=== PATIENT | male | born 1985 | race African-American/Black ===

== ENCOUNTER 2017-06-10 18:56 | Emergency (ER) | payer SELFPAY ==
--- NOTE | 2017-06-10 19:04 | PDOC ---
Rapid Medical Evaluation Time Seen by Provider: 06/10/17 19:02 Medical Evaluation: Allergies Allergy/AdvReac Type Severity Reaction Status Date / Time No Known Allergies Allergy Verified 11/29/13 13:50 06/10/17 19:02 I have performed a brief in-person evaluation of this patient. The patient presents with a chief complaint of: abscess to face since yesterday , "feels like i have a fever now" Pertinent physical exam findings: mild raised lesion inferior to left eye, no erythema, swelling, fluctuance, induration I have ordered the following: nothing The patient will proceed to the ED for further evaluation. Discharge Disposition - Diagnosis Skin abnormality - Referrals - Patient Instructions - Post Discharge Activity
[2017-06-10 19:08] VITALS: BP 140/84; PULSE 95; TEMP 99.2; BMI 38.0
--- NOTE | 2017-06-10 19:56 | PDOC ---
History of Present Illness - General Chief Complaint: Wound Stated Complaint: PAIN Time Seen by Provider: 06/10/17 19:02 History Source: Patient - History of Present Illness Timing/Duration: other Severity: severe Associated Symptoms: denies: fever/chills Past History - Past Medical History Allergies/Adverse Reactions: Allergies Allergy/AdvReac Type Severity Reaction Status Date / Time No Known Allergies Allergy Verified 06/10/17 19:04 Home Medications: Ambulatory Orders Clindamycin [Cleocin -] 300 mg PO Q6HPO #28 capsule 06/10/17 Ibuprofen [Motrin -] 2 tab PO Q6H #30 tablet 06/10/17 COPD: No DVT: No - Suicide/Smoking/Psychosocial Hx Smoking History: Never smoked Have you smoked in the past 12 months: No Information on smoking cessation initiated: No Hx Alcohol Use: No Drug/Substance Use Hx: No Substance Use Type: None Review of Systems - Review of Systems Constitutional: No: Chills, Fever *Physical Exam - Vital Signs Last Vital Signs Temp Pulse Resp BP Pulse Ox 99.2 F 95 H 16 140/84 100 06/10/17 19:05 06/10/17 19:05 06/10/17 19:05 06/10/17 19:05 06/10/17 19:05 - Physical Exam General Appearance: Yes: Appropriately Dressed. No: Apparent Distress HEENT: positive: Normal Voice, Other (+ttp to L nasolabial fold without swelling /induration, +ttp to gum surrounding L upper 1st premolar) Neck: negative: Lymphadenopathy (R), Lymphadenopathy (L) Respiratory/Chest: negative: Respiratory Distress Integumentary: positive: Dry, Warm Neurologic: positive: Fully Oriented, Alert, Normal Mood/Affect Medical Decision Making - Medical Decision Making 06/10/17 19:51 31-year-old male, no significant history here with left-sided facial pain and swelling since yesterday. No fever or chills. No recent trauma trauma. No recent dental procedure. Patient well-appearing and stable with no obvious facial swelling or induration, but does have some tenderness over left nasolabial fold with corresponding gum tenderness to left upper gum over first premolar without obvious abscess and no discharge. Possible early abscess. Will dc with antibiotics and pain control. Patient instructed to follow up with dental tomorrow *DC/Admit/Observation/Transfer Diagnosis at time of Disposition: Pain, dental - Discharge Dispostion Disposition: HOME Condition at time of disposition: Good - Prescriptions Prescriptions: Clindamycin [Cleocin -] 300 mg PO Q6HPO #28 capsule Ibuprofen [Motrin -] 2 tab PO Q6H #30 tablet - Referrals - Patient Instructions Printed Discharge Instructions: DI for Dental Pain Additional Instructions: You may have an early dental abscess. Take medications as prescribed and follow up with dental tomorrow [facility] [address] [place] [id number] - Post Discharge Activity
== END 2017-06-10 19:55 | disposition home or self-care (01) ==
LOC: JERFT 18:56
DX: K08.89 Other specified disorders of teeth and supporting structures (principal)
CPT/HCPCS: 99281-25

== ENCOUNTER → 2018-07-29 | Emergency (ER) | payer SELFPAY | END | disposition home or self-care (01) | LOC: JERFT 20:41 ==

== ENCOUNTER 2022-07-14 08:09 | Emergency (ER) | payer OTHER ==
[2022-07-14] MEDS ORDERED: CEPHALEXIN MONOHYDRATE 500 MG CAPSULE (UD) PO ONE (08:12)
[2022-07-14 08:15] VITALS: BP 131/91; PULSE 92; RESP 20; TEMP 98.5; BMI 42.8
[2022-07-14] MEDS ORDERED: CEPHALEXIN MONOHYDRATE 500 MG CAPSULE (UD) ONE (08:26)
== END 2022-07-14 08:32 | disposition home or self-care (01) ==
LOC: FER 08:09
DX: L02.421 Furuncle of right axilla (principal); L02.411 Cutaneous abscess of right axilla
CPT/HCPCS: 99283-25